=== PATIENT | female | born 1990 | race Hispanic/Latino ===

== ENCOUNTER 2020-11-24 17:10 | Emergency (ER) | payer BC ==
[2020-11-24] MEDS ORDERED: ACETAMINOPHEN 500 MG TAB ONE (20:08)
[2020-11-24] MEDS ORDERED: dexAMETHasone 10 MG/ML VIAL ONE (20:08)
[2020-11-24] MEDS ORDERED: ACETAMINOPHEN 160 MG/5 ML UCUP ONE (20:13)
[2020-11-24 20:18] LABS: SARS-COV-2 RT PCR POSITIVE (NEGATIVE)
--- NOTE | 2020-11-24 20:40 | ER ---
Nurse's Notes [facility] Name: Jennifer Carranza Age: 30 yrs Sex: Female : 1990 Arrival Date: 11/24/2020 Time: 17:12 Bed 19 Private MD: Diagnosis: Coronavirus infection, unspecified Presentation: 11/24 17:17 Chief complaint: Patient states: fever, runny nose, body aches, cough, sore throat ca1 since last night. Coronavirus screen: Client denies travel out of the [place] in the last 14 days. congestion, cough unrelated to allergies, fever, muscle pain, sore throat, Client presents with at least one sign or symptom that may indicate coronavirus-19. Standard/surgical mask placed on the client. Provider contacted for isolation considerations. Ebola Screen: Patient negative for fever greater than or equal to 101.5 degrees Fahrenheit, and additional compatible Ebola Virus Disease symptoms Patient denies exposure to infectious person. Patient denies travel to an Ebola-affected area in the 21 days before illness onset. No symptoms or risks identified at this time. Initial Sepsis Screen: Does the patient meet any 2 criteria? No. Patient's initial sepsis screen is negative. Does the patient have a suspected source of infection? No. Patient's initial sepsis screen is negative. Risk Assessment: Do you want to hurt yourself or someone else? Patient reports no desire to harm self or others. Onset of symptoms was November 24, 2020. 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 - Social history:: Smoking status: Patient denies any tobacco usage or history of. Screenin:09 Abuse screen: Denies threats or abuse. Nutritional screening: No deficits noted. mg2 Tuberculosis screening: No symptoms or risk factors identified. Fall Risk None identified. Assessment: 20:06 General: Appears in no apparent distress. uncomfortable, Behavior is calm, cooperative. mg2 Pain: Complains of pain in throat and lower back Pain currently is 7 out of 10 on a pain scale. Pain began 1 day ago. Neuro: Level of Consciousness is awake, alert, obeys commands, Oriented to person, place, time, situation. Cardiovascular: Patient's skin is warm and dry. Respiratory: Airway is patent Respiratory effort is even, unlabored. Respiratory: Reports cough that is. GI: No signs and/or symptoms were reported involving the gastrointestinal system. : No signs and/or symptoms were reported regarding the genitourinary system. EENT: Throat is pink Reports sore throat. 20:09 Derm: Skin is intact, is healthy with good turgor. Musculoskeletal: Circulation, mg2 motion, and sensation intact. Vital Signs: 17:17 BP 103 / 87; Pulse 111; Resp 19 S; Temp 99.6(TE); Pulse Ox 98% on R/A; Weight 71.67 kg ca1 (R); Height 5 ft. 3 in. (160.02 cm) (R); Pain 5/10; 20:09 BP 124 / 88; Pulse 110; Resp 14; Pulse Ox 98% on R/A; mg2 17:17 Body Mass Index 27.99 (71.67 kg, 160.02 cm) ca1 ED Course: 17:12 Patient arrived in ED. ds1 17:20 Triage completed. ca1 17:20 Arm band placed on right wrist. ca1 18:04 Jayden Pandya PA is PHCP. jmm 18:04 Benton Delong MD is Attending Physician. [facility] 19:01 Kelsey Stallworth, PONCHO is Primary Nurse. vg1 20:09 Patient has correct armband on for positive identification. Call light in reach. Side mg2 rails up X 1. 20:59 No provider procedures requiring assistance completed. Patient did not have IV access vg1 during this emergency room visit. Administered Medications: 19:58 Drug: Tylenol Liquid 10 mg/kg Route: PO; mg2 21:02 Follow up: Response: No adverse reaction vg1 19:58 Drug: Decadron (dexamethasone) 10 mg Route: IM; Site: left gluteus; mg2 21:02 Follow up: Response: No adverse reaction vg1 Outcome: 20:39 Discharge ordered by . [facility] 21:02 Discharged to home ambulatory. vg1 21:02 Condition: stable 21:02 Discharge instructions given to patient, Instructed on discharge instructions, follow up and referral plans. medication usage, Demonstrated understanding of instructions, follow-up care, medications, Prescriptions given X 1. 21:02 Patient left the ED. vg1 Signatures: Jayden Pandya PA PA jmm Sanford, Demi ds1 Zeb Shoemaker, RN RN mg2 Macie Henderson RN RN ca1 Kelsey Stallworth RN RN vg1
--- NOTE | 2020-11-24 20:40 | EDPHYS ---
Physician Documentation [facility] Name: Jennifer Carranza Age: 30 yrs Sex: Female : 1990 Arrival Date: 11/24/2020 Time: 17:12 Bed 19 Private MD: ED Physician Benton Delong HPI: 11/24 20:33 This 30 yrs old Female presents to ER via Ambulatory with complaints of Fever, jmm Body Aches, Cough. 20:33 The patient reports fever. Onset: The symptoms/episode began/occurred gradually, 1 jmm day(s) ago. Modifying factors: there are no obvious modifying factors. Associated signs and symptoms: Pertinent positives: cough, sore throat. The patient has not experienced similar symptoms in the past. The patient has not recently seen a physician. 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 - Social history:: Smoking status: Patient denies any tobacco usage or history of. ROS: 20:33 Constitutional: Positive for body aches, fever. jmm 20:33 ENT: Positive for sore throat. 20:33 Respiratory: Positive for cough. 20:33 All other systems are negative. Exam: 20:33 Constitutional: This is a well developed, well nourished patient who is awake, alert, jmm and in no acute distress. Head/Face: atraumatic. Eyes: EOMI, no conjunctival erythema appreciated 20:33 Neck: Trachea midline, Supple Chest/axilla: Normal chest wall appearance and motion. 20:33 Abdomen/GI: Non distended, soft Back: Normal ROM Skin: General appearance color normal MS/ Extremity: Moves all extremities, no obvious deformities appreciated, no edema noted to the lower extremities Neuro: Awake and alert, normal gait Psych: Behavior is normal, Mood is normal, Patient is cooperative and pleasant 20:33 ENT: Posterior pharynx: Airway: normal, Tonsils: enlarged on the right, enlarged on the left, with erythema, erythema, that is moderate. 20:33 Cardiovascular: Rate: tachycardic, Rhythm: regular. Vital Signs: 17:17 BP 103 / 87; Pulse 111; Resp 19 S; Temp 99.6(TE); Pulse Ox 98% on R/A; Weight 71.67 kg ca1 (R); Height 5 ft. 3 in. (160.02 cm) (R); Pain 5/10; 20:09 BP 124 / 88; Pulse 110; Resp 14; Pulse Ox 98% on R/A; mg2 17:17 Body Mass Index 27.99 (71.67 kg, 160.02 cm) ca1 MDM: 19:01 Patient medically screened. ruddy 20:35 Data reviewed: vital signs, nurses notes. Counseling: I had a detailed discussion with abhishek the patient and/or guardian regarding: the historical points, exam findings, and any diagnostic results supporting the discharge/admit diagnosis, lab results, the need for outpatient follow up, to return to the emergency department if symptoms worsen or persist or if there are any questions or concerns that arise at home. ED course: Patient is alert and non toxic in appearance in the ED. No signs of resp distress. patient is given strict return precautions. Patient understood and agrees with the plan of care. . 11/24 20:18 Order name: COVID-19/FLU A+B; Complete Time: 20:19 EDMS Administered Medications: 19:58 Drug: Tylenol Liquid 10 mg/kg Route: PO; mg2 21:02 Follow up: Response: No adverse reaction vg1 19:58 Drug: Decadron (dexamethasone) 10 mg Route: IM; Site: left gluteus; mg2 21:02 Follow up: Response: No adverse reaction vg1 Disposition: 11/25 07:20 Co-signature as Attending Physician, Benton Delong MD I agree with the assessment and [facility] plan of care. Disposition: 11/24/20 20:39 Discharged to Home. Impression: Coronavirus infection, unspecified. - Condition is Stable. - Discharge Instructions: COVID-19. - Prescriptions for Albuterol Sulfate 90 mcg/actuation - inhale 1-2 puff by INHALATION route every 4-6 hours; 1 Inhaler. - Medication Reconciliation Form, Thank You Letter, Antibiotic Education, Prescription Opioid Use, Work release form form. - Follow up: Private Physician; When: 2 - 3 days; Reason: Recheck today's complaints, Continuance of care, Re-evaluation by your physician. - Notes: Please take - 10,000 IU of vitamin D a day 5000MG of vitaminC a day 1000 mg of NAC (N-Acetyl Cysteine) twice a day 50 to 100 mg of Zinc a day 500 Mg of Quercetin twice a day Signatures: Dispatcher [employer] EDMS Benton Delong MD MD cha Mickail, Joel, PA PA jmm Gardose, Michele, PONCHO ISAAC mg2 Macie Henderson RN RN ca1 Kelsey Stallworth RN RN vg1 Corrections: (The following items were deleted from the chart) 11/24 19:00 17:22 Influenza Screen (A \T\ B)+BA.LAB.BRZ ordered. [facility] EDMS 19:00 17:22 CORONAVIRUS+MR.LAB.BRZ ordered. [facility] EDMS 21:02 20:39 11/24/2020 20:39 Discharged to Home. Impression: Coronavirus infection, vg1 unspecified. Condition is Stable. Forms are Medication Reconciliation Form, Thank You Letter, Antibiotic Education, Prescription Opioid Use. Follow up: Private Physician; When: 2 - 3 days; Reason: Recheck today's complaints, Continuance of care, Re-evaluation by your physician. abhishek
[2020-11-25 04:22] VITALS: TEMP 99.6; O2SAT 98
[2020-11-25 04:31] VITALS: BP 124/88
== END 2020-11-24 21:02 | disposition home or self-care (01) ==
LOC: ER 17:10
DX: U07.1 COVID-19 (principal)
CPT/HCPCS: 0240U; J1100; 96372; 99283

== ENCOUNTER 2021-11-20 16:32 | Emergency (ER) | payer BC, OTHER ==
--- OUTSIDE RECORDS SUMMARY | 2021-11-20 16:35 | XMS REPORT | Continuity of Care Document ---
:1990 Author Organization [facility] t Address [address] [place] [address] Dr. Doyle [address] [place] [id number] Care Team Providers Name Role Phone Unavailable Unavailable Unavailable Problems This patient has no known problems. Allergies, Adverse Reactions, Alerts This patient has no known allergies or adverse reactions. Medications This patient has no known medications. Procedures This patient has no known procedures. Results This patient has no known results.
[2021-11-20] MEDS ORDERED: IBUPROFEN 200 MG TAB PO ONE (17:58)
[2021-11-20] MEDS ORDERED: ACETAMINOPHEN 325 MG TABLET ONE (18:04)
[2021-11-20] MEDS ORDERED: ACETAMINOPHEN 160 MG/5 ML UCUP ONE (18:07)
[2021-11-20] MEDS ORDERED: IBUPROFEN 100 MG/5 ML UCUP ONE (18:07)
--- NOTE | 2021-11-20 19:11 | RAD REPORT ---
EXAM DESCRIPTION: RAD - Humerus Right - 11/20/2021 6:39 pm CLINICAL HISTORY: Right arm pain FINDINGS: No fracture is seen
--- NOTE | 2021-11-20 19:12 | RAD REPORT ---
EXAM DESCRIPTION: RAD - Femur Right - 11/20/2021 6:39 pm CLINICAL HISTORY: Leg pain FINDINGS: No fracture is seen.
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
[2021-11-20 20:11] VITALS: TEMP 98.7; O2SAT 100
[2021-11-20 20:12] VITALS: BP 103/64
== END 2021-11-20 19:56 | disposition home or self-care (01) ==
LOC: ER 16:32
DX: S40.021A Contusion of right upper arm, initial encounter (principal); V43.52XA Car driver injured in collision with other type car in traffic accident, initial encounter; Y93.89 Activity, other specified; Y92.410 Unspecified street and highway as the place of occurrence of the external cause; M79.604 Pain in right leg; Z91.09 Other allergy status, other than to drugs and biological substances
CPT/HCPCS: 99283

== ENCOUNTER 2023-11-30 12:19 | Emergency (ER) | payer BC, SELFPAY ==
--- OUTSIDE RECORDS SUMMARY | 2023-11-30 12:21 | XMS REPORT | Continuity of Care Document ---
Author Name Unknown Address [address] [place] [address] [place] [address] [employer] Address [address] [place] [address] [address] [place] [address] Care Team Providers Care Paper Stacker Name Role Phone [email or web address] Attending Clinician Unavaila ble [email or web address] Admitting Clinician Unavaila ble Encounters Start Date/Time End Date/Time Encounter Type Admission Type Attending Clinicians Care Facility Care Department Encounter ID Source 2023-06-23 00:00:00 2023-06-23 00:00:00 Outpatient [email or web address] PRIV PRIV [id number] [facility] 2023-06-22 00:00:00 2023-06-22 00:00:00 Outpatient [email or web address] PRIV PRIV [id number] [facility]
--- NOTE | 2023-11-30 13:21 | RAD REPORT ---
EXAM DESCRIPTION: RAD - Hand Right 3 View - 11/30/2023 1:13 pm CLINICAL HISTORY: fall;Pain COMPARISON: No comparisons FINDINGS/IMPRESSION: No acute fracture. No malalignment. No significant focal degenerative changes.
--- NOTE | 2023-11-30 13:30 | ER ---
Nurse's Notes [facility] Name: Jennifer Carranza Age: 33 yrs Sex: Female : 1990 Arrival Date: 11/30/2023 Time: 12:19 Bed 12 Private MD: Diagnosis: Contusion of right hand Presentation: 11/29 12:34 Chief complaint: Patient states: R hand pain and swelling since falling on it Sunday. ll1 Coronavirus screen: Client denies travel out of the [place] in the last 14 days. At this time, the client does not indicate any symptoms associated with coronavirus-19. Ebola Screen: Patient denies travel to an Ebola-affected area in the 21 days before illness onset. Initial Sepsis Screen: Does the patient meet any 2 criteria? No. Patient's initial sepsis screen is negative. Does the patient have a suspected source of infection? No. Patient's initial sepsis screen is negative. Risk Assessment: Do you want to hurt yourself or someone else? Patient reports no desire to harm self or others. Onset of symptoms was November 25, 2023. 12:34 Method Of Arrival: Ambulatory ll1 12:34 Acuity: JOSÉ MIGUEL 4 ll1 Triage Assessment: 12:44 General: Appears uncomfortable, Behavior is calm, cooperative, appropriate for age. ll1 Pain: Denies pain. Musculoskeletal: Circulation, motion, and sensation intact. Capillary refill < 3 seconds, Reports pain in left hand. Injury Description: Bruise. 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 - Infectious Disease History:: Denies. - Social history:: Smoking status: Patient denies any tobacco usage or history of. - Family history:: not pertinent. - Hospitalizations: : No recent hospitalization is reported. Screenin:44 [facility] ED Fall Risk Assessment (Adult) History of falling in the last 3 months, ll1 including since admission Yes- single mechanical fall (1 pt) Confusion or Disorientation No (0 pts) Intoxicated or Sedated No (0 pts) Impaired Gait No (0 pts) Mobility Assist Device Used No (0 pt) Altered Elimination No (0 pt) Score/Fall Risk Level 0 - 2 = Low Risk Oriented to surroundings, Hourly rounding (assess needs \T\ fall precautionary measures) done. Abuse screen: Denies threats or abuse. Nutritional screening: No deficits noted. Tuberculosis screening: No symptoms or risk factors identified. Assessment: 12:48 Reassessment: No changes from previously documented assessment. Patient and/or family ll1 updated on plan of care and expected duration. Pain level reassessed. Patient is alert, oriented x 3, equal unlabored respirations, skin warm/dry/pink. 13:44 Reassessment: No changes from previously documented assessment. Patient and/or family ll1 updated on plan of care and expected duration. Pain level reassessed. Patient is alert, oriented x 3, equal unlabored respirations, skin warm/dry/pink. Vital Signs: 12:34 BP 124 / 68; Pulse 75; Resp 16; Temp 98.2; Pulse Ox 100% ; Pain 0/10; ll1 13:44 BP 124 / 80; Pulse 64; Resp 16; Temp 97.4; Pulse Ox 100% ; Pain 0/10; ll1 12:34 Pain Scale: Adult ll1 13:44 Pain Scale: Adult ll1 ED Course: 12:19 Patient arrived in ED. rg4 12:30 Real Fuller MD is Attending Physician. rn 12:36 Triage completed. ll1 12:36 Arm band placed on Patient placed in an exam room, on a stretcher. ll1 12:45 Patient has correct armband on for positive identification. Call light in reach. ll1 Provided Education on: ER procedures and process. 12:47 Gabe Handy, PONCHO is Primary Nurse. ll1 13:14 XRAY Hand RIGHT 3 View In Process Unspecified. EDMS 13:44 No provider procedures requiring assistance completed. Patient did not have IV access ll1 during this emergency room visit. Administered Medications: No medications were administered Medication: 12:45 VIS not applicable for this client. ll1 Outcome: 13:30 Discharge ordered by . rn 13:44 Patient left the ED. ll1 13:44 Discharged to home ll1 13:44 Condition: stable 13:44 Discharge instructions given to patient, Instructed on discharge instructions, follow up and referral plans. Demonstrated understanding of instructions, follow-up care, Signatures: Dispatcher [employer] Real Navarro MD MD rn Garcia, Makayla rg4 Gabe Handy RN RN ll1 Corrections: (The following items were deleted from the chart) 13:18 12:34 BP 124 / 68; Pulse 75bpm; Resp 16bpm; Pulse Ox 100%; Pain 0/10, Adult; ll1 ll1
--- NOTE | 2023-11-30 13:30 | EDPHYS ---
Physician Documentation [facility] Name: Jennifer Carranza Age: 33 yrs Sex: Female : 1990 Arrival Date: 11/30/2023 Time: 12:19 Bed 12 Private MD: ED Physician Real Fuller HPI: 11/29 12:44 This 33 yrs old Female presents to ER via Ambulatory with complaints of Hand rn Injury. 12:44 The patient or guardian reports injury, pain. The complaints affect the right hand rn diffusely. Onset: The symptoms/episode began/occurred 5 day(s) ago. Modifying factors: The symptoms are alleviated by nothing, the symptoms are aggravated by movement. Severity of symptoms: At their worst the symptoms were moderate, in the emergency department the symptoms have improved. The patient has not experienced similar symptoms in the past. Patient reports doing sack race on [place], fell with outstretched hand. Denies pain to wrist or forearm. Reports isolated pain to the hand along the fourth and fifth metacarpals. Overall swelling is improving but still having pain so told to come in and get it checked out.. 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 - Infectious Disease History:: Denies. - Social history:: Smoking status: Patient denies any tobacco usage or history of. - Family history:: not pertinent. - Hospitalizations: : No recent hospitalization is reported. ROS: 12:44 MS/Extremity: Positive for injury and pain to right hand rn Exam: 12:44 Constitutional: This is a well developed, well nourished patient who is awake, alert, rn and in no acute distress. MS/ Extremity: Pulses equal, no cyanosis. Neurovascular intact. Full, normal range of motion. Equal circumference. Mild tenderness over fourth and fifth metacarpals. No open wounds. No gross deformity. No evidence of scissoring of fingers when making fist. Vital Signs: 12:34 BP 124 / 68; Pulse 75; Resp 16; Temp 98.2; Pulse Ox 100% ; Pain 0/10; ll1 13:44 BP 124 / 80; Pulse 64; Resp 16; Temp 97.4; Pulse Ox 100% ; Pain 0/10; ll1 12:34 Pain Scale: Adult ll1 13:44 Pain Scale: Adult ll1 MDM: 12:30 Patient medically screened. rn 13:29 Differential diagnosis: closed fracture, contusion. Data reviewed: vital signs, nurses rn notes, radiologic studies, plain films, and as a result, I will discharge patient. Independent interpretation of the following test(s) in the Emergency Department X-Ray: My interpretation is X-ray right hand images negative for acute fracture per my interpretation. Counseling: I had a detailed discussion with the patient and/or guardian regarding the historical points, exam findings, and any diagnostic results supporting the discharge/admit diagnosis, radiology results, the need for outpatient follow up, to return to the emergency department if symptoms worsen or persist or if there are any questions or concerns that arise at home. Special discussion: I discussed with the patient/guardian in detail that at this point there is no indication for admission to the hospital. It is understood, however, that if the symptoms persist or worsen the patient needs to return immediately for re-evaluation. 11/29 12:42 Order name: XRAY Hand RIGHT 3 View; Complete Time: 13:27 rn Administered Medications: No medications were administered Disposition Summary: 11/30/23 13:30 Discharge Ordered Notes: Location: Home rn Problem: new rn Symptoms: have improved rn Condition: Stable rn Diagnosis - Contusion of right hand rn Followup: rn - With: Private Physician - When: As needed - Reason: Recheck today's complaints, Re-evaluation by your physician Discharge Instructions: - Discharge Summary Sheet rn - Hand Contusion rn Forms: - Medication Reconciliation Form rn - Thank You Letter rn - Antibiotic rn pain management - Prescription Opioid Use rn - Patient Portal Instructions rn - Leadership Thank You Letter rn - Work release form ll1 Signatures: Dispatcher [employer] EDReal Grewal MD MD rn Lewis, Lynsay, RN RN ll1 Corrections: (The following items were deleted from the chart) 12:43 12:42 Hand Right 3 View+RAD.[email or web address].[email or web address] ordered. EDWY EDMS
[2023-11-30 14:05] VITALS: BP 124/68; TEMP 98.2; O2SAT 100
== END 2023-11-30 13:44 | disposition home or self-care (01) ==
LOC: ER 12:19
DX: S60.221A Contusion of right hand, initial encounter (principal)
CPT/HCPCS: 99283